=== PATIENT | male | born 1970 | race Caucasian/White ===

== ENCOUNTER 2019-08-13 14:19 | Outpatient (AMBR) | payer MEDICAID, SELFPAY ==
--- NOTE | 2019-08-13 19:32 | PT.ODAYNRPT ---
PT Outpatient Daily Note Date of Service: August 13, 2019 OP Daily Note Visit Reasons: hip replacement Outpatient Physical Therapy Treatment Date: 08/13/19 Subjective: Overall better Objective: See F/S for therex Assessment: Good exercise tolerance with low tissue irritability Plan: Continue per POC Length of Time (minutes) of Treatment: 30 Minutes Office Procedures PT Procedures PT Date of Service: 08/13/19 Therapeutic Exercise 30 minutes: Yes
== END 2019-08-19 23:59 | disposition home or self-care (01) ==
PROVIDERS: PCP Family Medicine; Referring Provider Family Medicine; Visit Provider Specialist
DX: M19.90 Unspecified osteoarthritis, unspecified site (principal)
CPT/HCPCS: 97110